=== PATIENT | female | born 1995 | race African-American/Black ===

== ENCOUNTER 2017-08-11 20:30 | Emergency (ER) | payer OTHER ==
[~2017-08-11] VITALS: Ht 165.1 cm; Wt 61.3 kg
[2017-08-11 20:40] VITALS: TEMP 36.7; Ht 165.1 cm; Wt 61.3 kg
[2017-08-11] MEDS ORDERED: SODIUM CHLORIDE 0.9% 1000ML 1,000 ML IV STA (21:11)
[2017-08-11] MEDS ORDERED: KETOROLAC TROMETHAMINE 30 MG/ML VIAL IV STA (21:13)
[2017-08-11] MEDS ORDERED: BCPILLS PO (21:17)
--- NOTE | 2017-08-11 21:26 | EMERGENCY ROOM VISIT NOTE ---
ED Visit Note First contact with patient: 21:01 CHIEF COMPLAINT: Right facial swelling/pain, fever/chills and body aches HISTORY OF PRESENTING ILLNESS: This is a 22-year-old female who presents to the emergency department with complaint of right neck swelling and pain that started yesterday. Pain has been a constant ache, currently rates as 6/10. She states she has had some chills and body aches as well. She was seen in urgent care today and was noted to have a low-grade fever of 100.6, she was sent to the ER for further evaluation. She states that she has had a decreased appetite for the past 2 days as well. She states that she had some URI symptoms and a sore throat about a month ago, but denies any of these currently. She denies any dental pain or known dental problems. She denies any difficulty breathing, wheezing, or difficulty swallowing. She denies any changes in her voice or hoarseness. She is up-to-date on immunizations. She states that she took Advil around 3 AM this morning, which did help with her body aches and pain, she has not taken anything since that time. She is not a smoker. She denies any previous history of symptoms like this. She denies any headaches, vision changes, posterior neck pain or stiffness, ear pain or difficulty hearing, chest pain, shortness of breath, abdominal pain, back pain, dizziness or syncope, nausea or vomiting, urinary symptoms, or unusual rash. REVIEW OF SYSTEMS: A complete 10 point review of systems was reviewed with the patient with pertinent positives and negatives as per history of present illness. All else were negative. PAST MEDICAL HISTORY: No significant past medical or surgical history. No prescribed medications. SOCIAL HISTORY: Lives at home. She is a [employer] student. She denies tobacco use. ALLERGIES: No known allergies. PHYSICAL EXAM: CONSTITUTIONAL: Pleasant and cooperative. No acute distress. Mildly dehydrated , but otherwise well appearing and well nourished. HEENT: Normocephalic, atraumatic. Pupils equal, round and reactive to light, EOMI. TMs normal. Pharynx with no erythema, edema, or exudate. No trismus. Uvula midline with no inflammation. Good dentition throughout, with no broken or carious teeth noted. No gingivitis or evidence of a periapical abscess. Tacky mucous membranes. NECK: Supple, full active range of motion without discomfort. There is mild swelling along the posterior right jaw, preauricular area, and upper neck, with a few enlarged anterior and posterior cervical lymph nodes, tender to palpation. No erythema or warmth. RESPIRATORY: Clear to auscultation bilaterally with no wheezing, crackles, rhonchi or stridor. Equal expansion bilaterally. CARDIOVASCULAR: Regular rate and rhythm with no murmurs, rubs or gallops. Normal peripheral perfusion. No edema. GASTROINTESTINAL: Soft, nontender, nondistended. No palpable masses or HSM. Bowel sounds present in all quadrants. MUSCULOSKELETAL: Full range of motion of all joints without discomfort. INTEGUMENTARY: No rash or other significant dermatologic conditions noted. NEUROLOGIC: Alert and oriented X 4 with normal affect. Cranial nerves II-XII grossly intact, no facial droop. No focal neurologic deficits noted. Normal strength and sensation in all 4 tremors. Normal speech. Normal gait observed. ED COURSE AND MEDICAL DECISION MAKING: CC: Patient presenting with complaint of facial swelling/pain, fever/chills and body aches DIFFERENTIAL DIAGNOSIS: Includes, but not limited to parotiditis, sialoadenitis , dental abscess, facial cellulitis, strep pharyngitis, mononucleosis, peritonsillar abscess, among others. INTERPRETATION OF LABS: No leukocytosis, no anemia, no significant electrolyte abnormalities, normal renal function. Monospot negative. Rapid strep negative , culture pending. MEDICATION RECONCILIATION: I attest that I have personally reviewed the patient 's current medication list. INITIAL VITAL SIGNS REVIEW: I reviewed the patient's initial vital signs and interpret them as follows: T: Afebrile; BP: Normotensive; HR: Within normal limits; RR: Within normal limits; Pulse Ox: Within normal limits on room air. Blood pressure screening: The patient was found to have normal blood pressure on screening and does not require follow-up for repeat blood pressure check. SUMMARY: Patient was evaluated at bedside, history and physical exam performed. Patient is alert and oriented, no acute distress, resting calmly in stretcher. Patient was sent from urgent care, where she reportedly had a fever of 100.6, the patient states she did not receive any medications for this, and she is noted to be afebrile on arrival to the ED. There is mild right neck and jaw swelling, with some tender adenopathy noted. No pharyngeal erythema, edema, or exudate. No trismus or uvular deviation to suggest peritonsillar abscess. Orders were placed at bedside for labs, rapid strep and monospot, IV placement, IV fluid bolus for hydration, IV Toradol for pain. Patient discussed with Dr. Kovacs, who agrees with my assessment and plan. Labs reviewed above, unremarkable. Negative monospot and rapid strep. Patient reassessed multiple times throughout ED stay, she remained stable, and states her pain is somewhat improved after the Toradol and fluids. Patient was updated on all results and plan for discharge, she was instructed to follow closely with her PCP or return to the ED or urgent care if her symptoms are not improving in the next few days. Patient was also given strict return precautions should her symptoms worsen, she verbalized understanding. Patient was discharged home in stable condition and ambulatory. Current/Historical Medications Scheduled Control Pills ( Control Pills), 1 TAB PO DAILY Allergies Coded Allergies: [place] (Verified Allergy, Intermediate, LIPS BLISTER, 08/11/17) Peanut (Verified Allergy, Intermediate, LIPS BLISTER, 08/11/17) Pear (Verified Allergy, Intermediate, LIPS BLISTER, 08/11/17) Uncoded Allergies: SEAFOOD (Allergy, Intermediate, LIPS BLISTER, 08/11/17) TOMATOES (Allergy, Intermediate, LIPS BLISTER, 08/11/17) Vital Signs Date Time Temp Pulse Resp B/P (MAP) Pulse Ox O2 Delivery O2 Flow Rate FiO2 08/11/17 21:56 86 16 111/92 97 Room Air 08/11/17 21:51 91 14 111/92 98 Room Air 08/11/17 21:51 97 Room Air 08/11/17 20:40 36.7 93 18 125/80 100 Room Air Laboratory Results 08/11/17 21:25 Red Blood Count 4.30, Mean Corpuscular Volume 94.0, Mean Corpuscular Hemoglobin 32.6, Mean Corpuscular Hemoglobin Concent 34.7, Mean Platelet Volume 9.8, Neutrophils (%) (Auto) 64.5, Lymphocytes (%) (Auto) 22.4, Monocytes (%) (Auto) 12.5, Eosinophils (%) (Auto) 0.0, Basophils (%) (Auto) 0.4, Neutrophils # (Auto ) 3.67, Lymphocytes # (Auto) 1.27, Monocytes # (Auto) 0.71, Eosinophils # (Auto ) 0.00, Basophils # (Auto) 0.02 08/11/17 21:25 Test 08/11/17 21:25 White Blood Count 5.68 K/uL (4.8-10.8) Red Blood Count 4.30 M/uL (4.2-5.4) Hemoglobin 14.0 g/dL (12.0-16.0) Hematocrit 40.4 % (37-47) Mean Corpuscular Volume 94.0 fL (80-100) Mean Corpuscular Hemoglobin 32.6 pg (25-34) Mean Corpuscular Hemoglobin Concent 34.7 g/dl (32-36) Platelet Count 331 K/uL (130-400) Mean Platelet Volume 9.8 fL (7.4-10.4) Neutrophils (%) (Auto) 64.5 % Lymphocytes (%) (Auto) 22.4 % Monocytes (%) (Auto) 12.5 % Eosinophils (%) (Auto) 0.0 % Basophils (%) (Auto) 0.4 % Neutrophils # (Auto) 3.67 K/uL (1.4-6.5) Lymphocytes # (Auto) 1.27 K/uL (1.2-3.4) Monocytes # (Auto) 0.71 K/uL (0.11-0.59) Eosinophils # (Auto) 0.00 K/uL (0-0.5) Basophils # (Auto) 0.02 K/uL (0-0.2) RDW Standard Deviation 47.9 fL (36.4-46.3) RDW Coefficient of Variation 14.0 % (11.5-14.5) Immature Granulocyte % (Auto) 0.2 % Immature Granulocyte # (Auto) 0.01 K/uL (0.00-0.02) Anion Gap 6.0 mmol/L (3-11) Est Creatinine Clear Calc Drug Dose 92.0 ml/min Estimated GFR () 110.4 Estimated GFR (Non- 95.2 BUN/Creatinine Ratio 6.3 (10-20) Calcium Level 8.4 mg/dl (8.5-10.1) Monoscreen NEG (NEG) Medications Administered Medications (Trade) Dose Ordered Sig/María Route Start Time Stop Time Status Last Admin Dose Admin Sodium Chloride 1,000 ml @ 999 mls/hr Q1H1M STAT IV 08/11/17 21:11 08/11/17 22:11 DC 08/11/17 21:58 999 MLS/HR Ketorolac Tromethamine (Toradol Inj) 15 mg NOW STAT IV 08/11/17 21:13 08/11/17 21:14 DC 08/11/17 21:58 15 MG Departure Information Impression Primary Impression: Lymphadenopathy of right cervical region Dispostion Home / Self-Care Condition GOOD Patient Instructions ED Cervical Adenitis No Abx Tx, My [facility] Additional Instructions You were seen in the emergency department for your facial/neck swelling and pain. This is most likely caused by reactive lymph nodes. The results of your rapid strep screen were found to be negative. You will be contacted in 48-72 hrs with the results of your pending strep culture. Your mono testing was also negative today. For pain and fever control, you can use the following [id number] medicines (if >12 yo): - Regular strength (325mg/tab) Tylenol (acetaminophen) 2 tabs every 4-6 hours as needed. Do not exceed 10 tablets in a 24 hour period. Avoid taking more than 3000 mg of Tylenol per day. This includes any other sources of acetaminophen you may take on a regular basis. - Regular strength (200 mg/tab) Advil (ibuprofen) 3 tabs every 6-8 hours as needed. Do not exceed a dose of 2400 mg per day. You may apply warm compresses to the area for comfort and to help reduce pain and inflammation. Drink plenty of fluids to stay well hydrated. Follow-up with your Primary Care Provider in the next few days if her symptoms are not improving. Return to the emergency department for increasing pain, swelling, or redness, difficulty swallowing solids, liquids, or drool, difficulty breathing or inability to catch your breath, fevers > 101.5, severe dizziness or passing out , or any other concerns. Work Instructions Return To Work: 2 days
[2017-08-11 21:33] LABS: BASO % 0.4 %; BASO ABS # 0.02 K/uL (0-0.2); HEMATOCRIT 40.4 % (37-47); IG# 0.01 K/uL (0.00-0.02); LYMPH % 22.4 %; LYMPH ABS # 1.27 K/uL (1.2-3.4); MEAN CORPUSCULAR HEMOGLOBIN 32.6 pg (25-34); MEAN CORPUSCULAR HGB CONC 34.7 g/dl (32-36); MEAN PLATELET VOLUME 9.8 fL (7.4-10.4); MONO % 12.5 %; MONO ABS # 0.71 K/uL (0.11-0.59); NEUT % 64.5 %; NEUT ABS # 3.67 K/uL (1.4-6.5); PLATELET COUNT 331 K/uL (130-400); RED CELL DISTRIBUTION WIDTH SD 47.9 fL (36.4-46.3); WHITE BLOOD COUNT 5.68 K/uL (4.8-10.8)
[2017-08-11 21:49] LABS: CALCIUM 8.4 mg/dl (8.5-10.1); CREATININE 0.87 mg/dl (0.60-1.20); POTASSIUM 3.3 mmol/L (3.5-5.1)
[2017-08-11 22:42] VITALS: BP 112/74; PULSE 80; O2SAT 97
== END 2017-08-11 22:40 | disposition home or self-care (01) ==
LOC: C.EDB 20:32 → C.EDC 22:40
DX: R59.0 Localized enlarged lymph nodes (principal); Z79.3 Long term (current) use of hormonal contraceptives; Z91.018 Allergy to other foods; Z91.010 Allergy to peanuts; Z91.013 Allergy to seafood

== ENCOUNTER 2017-08-12 12:46 | Emergency (ER) | payer OTHER ==
[~2017-08-12] VITALS: Ht 165.1 cm; Wt 61.8 kg
[~2017-08-12 12:46] MED LIST: BCPILLS PO
[2017-08-12 12:48] VITALS: TEMP 36.9; Ht 165.1 cm; Wt 61.8 kg
[2017-08-12] MEDS ORDERED: KETOROLAC TROMETHAMINE 30 MG/ML VIAL IV STA (13:04)
[2017-08-12] MEDS ORDERED: SODIUM CHLORIDE 0.9% 1000ML 1,000 ML IV STA (13:04)
[2017-08-12] MEDS ORDERED: OPTIRAY 320 IV PRN (13:15)
--- NOTE | 2017-08-12 13:21 | EMERGENCY ROOM VISIT NOTE ---
ED Visit Note First contact with patient: 12:52 CHIEF COMPLAINT: Right facial pain/swelling HISTORY OF PRESENTING ILLNESS: This is a 22-year-old female who presents to the emergency department complaint of right facial pain and swelling that started 2 days ago. Patient was evaluated in the emergency department yesterday and had normal lab work, felt better after IV fluids and Toradol. Patient states that she feels that the pain and swelling have gotten worse today, rates 8/10. She did take 400 mg of ibuprofen last night, but has not taken anything for pain today. She has not been using warm compresses to her face as instructed. She denies any fevers or chills, but states that she is still having body aches and feeling tired. She denies any headache, vision changes, neck pain or stiffness , ear pain, throat pain, difficulty swallowing, nausea or vomiting, chest pain, shortness of breath, dizziness or syncope, abdominal pain, back pain, bowel or bladder dysfunction, urinary symptoms, or unusual rash. REVIEW OF SYSTEMS: A complete 10 point review of systems was reviewed with the patient with pertinent positives and negatives as per history of present illness. All else were negative. PAST MEDICAL HISTORY: No significant past medical or surgical history. Up-to- date on immunizations. SOCIAL HISTORY: Lives at home. She is a [employer] student. Denies tobacco use. ALLERGIES: Reviewed in chart, see below. PHYSICAL EXAM: CONSTITUTIONAL: Pleasant and cooperative. No acute distress, but appears uncomfortable and in pain. Mildly dehydrated, but otherwise well appearing and well nourished. HEENT: Normocephalic, atraumatic. There is mild to moderate swelling of the right facial area extending along the jaw and to the lateral neck, tender to palpation, no erythema but slightly warm to touch. No crepitus palpated. No fluctuance palpated. This does not appear significantly worse compared to yesterday. Scattered preauricular, anterior and posterior cervical lymph node, tender to palpation. PERRL, EOMI. TMs normal. Pharynx normal, no trismus or uvular deviation. Patent airway. Tacky mucous membranes. NECK: Supple, full active range of motion without discomfort. No nuchal rigidity. No meningismus. RESPIRATORY: Clear to auscultation bilaterally with no wheezing, crackles, rhonchi or stridor. Equal expansion bilaterally. CARDIOVASCULAR: Regular rate and rhythm with no murmurs, rubs or gallops. Normal peripheral perfusion. No edema. GASTROINTESTINAL: Soft, nontender, nondistended. No palpable masses or HSM. Bowel sounds present in all quadrants. MUSCULOSKELETAL: Full range of motion of all joints without discomfort. INTEGUMENTARY: No rash or other significant dermatologic conditions noted. NEUROLOGIC: Alert and oriented X 4 with normal affect. Cranial nerves II-XII grossly intact, no facial droop. No pronator drift. No focal neurologic deficits noted. Normal strength and sensation in all 4 extremities. Normal speech. Normal gait observed. ED COURSE AND MEDICAL DECISION MAKING: CC: Patient presenting with complaint of right facial pain/swelling DIFFERENTIAL DIAGNOSIS: Includes, but not limited to facial cellulitis, parotiditis, sialadenitis, deep space abscess, Alton-Delgado virus, mumps infection, among others. INTERPRETATION OF LABS: No leukocytosis, no anemia, no significant electrolyte abnormalities, normal renal function. Negative urine . IMAGING: CT SCAN OF THE NECK WITH IV CONTRAST CLINICAL HISTORY: Right-sided facial swelling. COMPARISON STUDY: No priors. TECHNIQUE: Following the IV administration of 94 cc of Optiray 320, CT scan of the soft tissues of the neck was performed from the skull base to the upper chest. Images are reviewed in the axial, sagittal, and coronal planes. IV contrast was administered without complication. A dose lowering technique was utilized adhering to the principles of ALARA. CT DOSE: 335.37 mGycm FINDINGS: Pharynx: The nasopharynx, oropharynx, and laryngeal pharynx are normal in appearance. The pharyngeal airway is widely patent. There is no evidence of mass lesion. The vocal cords are symmetric. The parapharyngeal fat is well maintained. The prevertebral/retropharyngeal soft tissues are within normal limits. The epiglottis is normal. Lymphadenopathy: There are numerous mildly enlarged right cervical lymph nodes. The largest is seen on image #78 and measures 2.1 x 1.2 cm. These are likely on a reactive basis Thyroid: Normal in size and attenuation. Salivary glands: The right parotid gland is enlarged, edematous, and hyperemic. There is surrounding inflammatory stranding and fluid, and this is located deep to the cutaneous marker at the site of interest. Fluid seen tracking inferiorly along the sternocleidomastoid musculature. No organized fluid collection is seen to indicate abscess. The left parotid gland and the submandibular glands are normal in appearance. No calcified sialoliths are identified. Brain parenchyma: The visualized brain parenchyma at the skull base is normal in appearance. Vascular structures: The carotid arteries and jugular veins are widely patent bilaterally. Skeletal structures: Imaged portions of the calvarium at the skull base are within normal limits. The cervical spine appears intact. Sinuses and mastoids: The visualized paranasal sinuses are clear. The mastoid air cells are well pneumatized. Orbits: The bony orbits are intact. Orbital contents are normal in appearance. Lung apices: Visualized apical lung parenchyma is clear. IMPRESSION: 1. Findings are consistent with right-sided parotitis. 2. Mildly enlarged right cervical lymph nodes are likely on a reactive basis. MEDICATION RECONCILIATION: I attest that I have personally reviewed the patient 's current medication list. INITIAL VITAL SIGNS REVIEW: I reviewed the patient's initial vital signs and interpret them as follows: T: Afebrile; BP: Normotensive; HR: Within normal limits; RR: Within normal limits; Pulse Ox: Within normal limits on room air. Blood pressure screening: The patient was found to have normal blood pressure on screening and does not require follow-up for repeat blood pressure check. SUMMARY: Patient was evaluated at bedside, history and physical exam performed. Patient is alert and oriented, no acute distress, resting calmly in the stretcher. There is mild to moderate swelling of the right jaw and neck, tender to palpation, with lymphadenopathy. Patient is afebrile and nontoxic-appearing. She has not followed discharge instructions from yesterday, I do still suspect that this is most likely a viral process. Patient is frustrated that her symptoms have not improved and she feels she is getting worse, she is requesting a CT scan to further evaluate. Orders were placed at bedside for labs including mumps and EBV testing, IV placement, IV fluid bolus for hydration, IV Toradol for pain, CT soft tissue neck with IV contrast to evaluate for deep space infection/cellulitis. Patient discussed with Dr. Sadler, who agrees with my assessment and plan. Labs and imaging reviewed as above, labs unremarkable and apparently unchanged from yesterday. CT consistent with parotiditis without abscess or stone. Patient reassessed multiple times throughout ED stay, she has remained stable, afebrile, and reports she is slightly improved after fluids and Toradol. I do still strongly suspect that patient's symptoms are viral, and do not feel that an antibiotic would be helpful. Patient was updated on all results and plan for discharge, I again reiterated supportive care measures for symptom management at home. I did also speak on the phone with patient's aunt at the patient's request, and discussed all results with her as well. Patient and her aunt were comfortable with discharge at this time. The patient was encouraged to follow-up with her PCP if her symptoms are not improving in the next few days. Patient was also given strict return precautions should her symptoms worsen, she verbalized understanding. Patient was discharged home in stable condition and ambulatory. Current/Historical Medications Scheduled Control Pills ( Control Pills), 1 TAB PO DAILY Allergies Coded Allergies: [place] (Verified Allergy, Intermediate, LIPS BLISTER, 08/12/17) Peanut (Verified Allergy, Intermediate, LIPS BLISTER, 08/12/17) Pear (Verified Allergy, Intermediate, LIPS BLISTER, 08/12/17) Uncoded Allergies: SEAFOOD (Allergy, Intermediate, LIPS BLISTER, 08/11/17) TOMATOES (Allergy, Intermediate, LIPS BLISTER, 08/11/17) Vital Signs Date Time Temp Pulse Resp B/P (MAP) Pulse Ox O2 Delivery O2 Flow Rate FiO2 08/12/17 16:25 67 18 105/64 99 08/12/17 14:50 78 18 117/64 100 Room Air 08/12/17 12:48 36.9 82 18 108/63 97 Room Air Laboratory Results 08/12/17 13:29 Red Blood Count 4.28, Mean Corpuscular Volume 91.8, Mean Corpuscular Hemoglobin 31.5, Mean Corpuscular Hemoglobin Concent 34.4, Mean Platelet Volume 9.6, Neutrophils (%) (Auto) 69.1, Lymphocytes (%) (Auto) 22.4, Monocytes (%) (Auto) 8.1, Eosinophils (%) (Auto) 0.0, Basophils (%) (Auto) 0.2, Neutrophils # (Auto) 3.33, Lymphocytes # (Auto) 1.08, Monocytes # (Auto) 0.39, Eosinophils # (Auto) 0.00, Basophils # (Auto) 0.01 08/12/17 13:29 Test 08/12/17 13:20 08/12/17 13:29 Urine Test NEG (NEG) White Blood Count 4.82 K/uL (4.8-10.8) Red Blood Count 4.28 M/uL (4.2-5.4) Hemoglobin 13.5 g/dL (12.0-16.0) Hematocrit 39.3 % (37-47) Mean Corpuscular Volume 91.8 fL (80-100) Mean Corpuscular Hemoglobin 31.5 pg (25-34) Mean Corpuscular Hemoglobin Concent 34.4 g/dl (32-36) Platelet Count 268 K/uL (130-400) Mean Platelet Volume 9.6 fL (7.4-10.4) Neutrophils (%) (Auto) 69.1 % Lymphocytes (%) (Auto) 22.4 % Monocytes (%) (Auto) 8.1 % Eosinophils (%) (Auto) 0.0 % Basophils (%) (Auto) 0.2 % Neutrophils # (Auto) 3.33 K/uL (1.4-6.5) Lymphocytes # (Auto) 1.08 K/uL (1.2-3.4) Monocytes # (Auto) 0.39 K/uL (0.11-0.59) Eosinophils # (Auto) 0.00 K/uL (0-0.5) Basophils # (Auto) 0.01 K/uL (0-0.2) RDW Standard Deviation 47.1 fL (36.4-46.3) RDW Coefficient of Variation 14.0 % (11.5-14.5) Immature Granulocyte % (Auto) 0.2 % Immature Granulocyte # (Auto) 0.01 K/uL (0.00-0.02) Anion Gap 7.0 mmol/L (3-11) Est Creatinine Clear Calc Drug Dose 86.1 ml/min Estimated GFR () 101.8 Estimated GFR (Non- 87.9 BUN/Creatinine Ratio 6.9 (10-20) Calcium Level 8.3 mg/dl (8.5-10.1) Total Bilirubin 0.5 mg/dl (0.2-1) Aspartate Amino Transf (AST/SGOT) 28 U/L (15-37) Alanine Aminotransferase (ALT/SGPT) 28 U/L (12-78) Alkaline Phosphatase 49 U/L (45-117) Total Protein 8.4 gm/dl (6.4-8.2) Albumin 3.8 gm/dl (3.4-5.0) Globulin 4.6 gm/dl (2.5-4.0) Albumin/Globulin Ratio 0.8 (0.9-2) Medications Administered Medications (Trade) Dose Ordered Sig/María Route Start Time Stop Time Status Last Admin Dose Admin Sodium Chloride 1,000 ml @ 999 mls/hr Q1H1M STAT IV 08/12/17 13:04 08/12/17 14:04 DC 08/12/17 14:01 999 MLS/HR Ketorolac Tromethamine (Toradol Inj) 15 mg NOW STAT IV 08/12/17 13:04 08/12/17 13:09 DC 08/12/17 14:01 15 MG Departure Information Impression Primary Impression: Parotiditis Additional Impression: Lymphadenopathy of right cervical region Dispostion Home / Self-Care Condition GOOD Referrals No Doctor, Assigned (PCP) Patient Instructions ED Cervical Adenitis No Abx Tx, ED Mumps, ED Sublingual Gland Swelling [facility] By [facility] Additional Instructions You have been evaluated and treated in the emergency department today for your facial and neck swelling and pain. Your CT scan of your neck shows that your parotid gland is swollen and inflamed , and you have some swollen lymph nodes, which is most likely the cause of your pain. Your symptoms are most likely caused by a virus, which could include an infection such as mumps. Blood work was sent to evaluate for mumps today, you will be called and notified if any results are abnormal. Most viral illnesses can last 7-10 days, but may last up to 14 days. There are no medications to treat viruses, they must run their course. To treat your pain, please take 600 mg of ibuprofen EVERY 6 HOURS for the next few days to help reduce pain and inflammation. In addition, you may take 1000 mg of Tylenol every 8 hours alternating with the ibuprofen. Alternate cool and warm compresses to the area for comfort throughout the day. You may also suck on hard sour candy to help alleviate some of your symptoms. Please follow-up with your primary care provider or return to the emergency department if your symptoms are worsening, including fevers >101.5, difficulty swallowing solids, liquids, or your drool, difficulty breathing or inability to catch her breath, increased swelling or severe worsening pain, dizziness or passing out, or any other concerns. Work Instructions Return To Work: 3 days Problem Qualifiers
[2017-08-12 13:49] LABS: BASO % 0.2 %; BASO ABS # 0.01 K/uL (0-0.2); HEMATOCRIT 39.3 % (37-47); HEMOGLOBIN 13.5 g/dL (12.0-16.0); IG# 0.01 K/uL (0.00-0.02); LYMPH % 22.4 %; LYMPH ABS # 1.08 K/uL (1.2-3.4); MEAN CELL VOLUME 91.8 fL (80-100); MEAN CORPUSCULAR HEMOGLOBIN 31.5 pg (25-34); MEAN CORPUSCULAR HGB CONC 34.4 g/dl (32-36); MEAN PLATELET VOLUME 9.6 fL (7.4-10.4); MONO % 8.1 %; MONO ABS # 0.39 K/uL (0.11-0.59); NEUT % 69.1 %; NEUT ABS # 3.33 K/uL (1.4-6.5); PLATELET COUNT 268 K/uL (130-400); RED CELL DISTRIBUTION WIDTH SD 47.1 fL (36.4-46.3); WHITE BLOOD COUNT 4.82 K/uL (4.8-10.8)
[2017-08-12 14:11] LABS: ALBUMIN 3.8 gm/dl (3.4-5.0); CALCIUM 8.3 mg/dl (8.5-10.1); CREATININE 0.93 mg/dl (0.60-1.20); POTASSIUM 3.5 mmol/L (3.5-5.1); TOTAL PROTEIN 8.4 gm/dl (6.4-8.2)
--- NOTE | 2017-08-12 14:42 | DIAGNOSTIC IMAGING REPORT ---
CT SCAN OF THE NECK WITH IV CONTRAST CLINICAL HISTORY: Right-sided facial swelling. COMPARISON STUDY: No priors. TECHNIQUE: Following the IV administration of 94 cc of Optiray 320, CT scan of the soft tissues of the neck was performed from the skull base to the upper chest. Images are reviewed in the axial, sagittal, and coronal planes. IV contrast was administered without complication. A dose lowering technique was utilized adhering to the principles of ALARA. CT DOSE: 335.37 mGycm FINDINGS: Pharynx: The nasopharynx, oropharynx, and laryngeal pharynx are normal in appearance. The pharyngeal airway is widely patent. There is no evidence of mass lesion. The vocal cords are symmetric. The parapharyngeal fat is well maintained. The prevertebral/retropharyngeal soft tissues are within normal limits. The epiglottis is normal. Lymphadenopathy: There are numerous mildly enlarged right cervical lymph nodes. The largest is seen on image #[id number] and measures 2.1 x 1.2 cm. These are likely on a reactive basis Thyroid: Normal in size and attenuation. Salivary glands: The right parotid gland is enlarged, edematous, and hyperemic. There is surrounding inflammatory stranding and fluid, and this is located deep to the cutaneous marker at the site of interest. Fluid seen tracking inferiorly along the sternocleidomastoid musculature. No organized fluid collection is seen to indicate abscess. The left parotid gland and the submandibular glands are normal in appearance. No calcified sialoliths are identified. Brain parenchyma: The visualized brain parenchyma at the skull base is normal in appearance. Vascular structures: The carotid arteries and jugular veins are widely patent bilaterally. Skeletal structures: Imaged portions of the calvarium at the skull base are within normal limits. The cervical spine appears intact. Sinuses and mastoids: The visualized paranasal sinuses are clear. The mastoid air cells are well pneumatized. Orbits: The bony orbits are intact. Orbital contents are normal in appearance. Lung apices: Visualized apical lung parenchyma is clear. IMPRESSION: 1. Findings are consistent with right-sided parotitis. 2. Mildly enlarged right cervical lymph nodes are likely on a reactive basis. Electronically signed by: Ryan Hsieh M.D. 08/12/2017 2:41 PM Dictated Date/Time: 08/12/2017 2:37 PM
[2017-08-12 16:25] VITALS: BP 105/64; PULSE 67; O2SAT 99
[2017-08-17 18:27] LABS: EBV EARLY ANTIGEN AB < 9.00 U/ML; MUMPS VIRUS ANTIBODY IGM <1:20
== END 2017-08-12 16:28 | disposition home or self-care (01) ==
LOC: C.EDB 12:47 → C.EDC 16:28
DX: K11.20 Sialoadenitis, unspecified (principal); I88.9 Nonspecific lymphadenitis, unspecified; E86.0 Dehydration; Z79.3 Long term (current) use of hormonal contraceptives; Z91.013 Allergy to seafood; Z91.018 Allergy to other foods